=== PATIENT | female | born 1995 | race Caucasian/White ===

== ENCOUNTER 2018-12-16 12:25 | Inpatient (IN) | payer MEDICAID ==
[~2018-12-16] VITALS: Ht 154.9 cm; Wt 97.7 kg
[2018-12-20 07:40] VITALS: BP 109/71
== END 2018-12-20 12:35 | disposition home or self-care (01) | DRG 753 ==
LOC: 3E 12:41
PROVIDERS: ADMIT Psychiatry & Neurology Psychosomatic Medicine; ATTEND Psychiatry & Neurology Psychosomatic Medicine
DX: F31.30 Bipolar disorder, current episode depressed, mild or moderate severity, unspecified (principal); R45.851 Suicidal ideations; Z68.41 Body mass index [BMI] 40.0-44.9, adult; E66.9 Obesity, unspecified; F10.21 Alcohol dependence, in remission; F12.10 Cannabis abuse, uncomplicated; F17.200 Nicotine dependence, unspecified, uncomplicated; F41.9 Anxiety disorder, unspecified; F60.3 Borderline personality disorder; J45.909 Unspecified asthma, uncomplicated; Z79.899 Other long term (current) drug therapy
CPT/HCPCS: 36415; 80053; 80061; 81001; 82140; 82607; 84436; 84443; 85025; 85651; 86592; 87086; 93005